=== PATIENT | female | born 1980 | race African-American/Black ===

== ENCOUNTER 2016-12-17 16:19 | Emergency (ER) | payer MEDICAID ==
[~2016-12-17] VITALS: Ht 175.3 cm; Wt 104.3 kg
[2016-12-17 16:41] VITALS: BP 132/84
== END 2016-12-17 20:30 | disposition left against medical advice (07) ==
LOC: EDUNIT# 16:19 → ER 16:19
DX: R05 Cough (principal); Z53.21 Procedure and treatment not carried out due to patient leaving prior to being seen by health care provider